=== PATIENT | female | born 1990 | race Asian ===

== ENCOUNTER 2019-07-07 16:27 | Emergency (ER) | payer BC ==
--- NOTE | 2019-07-07 16:52 | UC ---
Cardiac HPI - HPI Summary HPI Summary: 28 yo female presents with left upper chest pain. She tells me that for the last 5 days she has been having left anterior chest wall pain that is worse with movement and palpation. She denies specific injury, but a few weeks ago did injure her left shoulder and has been giving herself "deep tissue" massages to the area - wonders if this is the cause of her pain. States pain is worse at night with laying on her shoulder or turning over in bed. She was seen at an Urgent Care in [place] and a CXR was done and was negative - dx'd with MSK strain. Pt has been taking 200mg ibuprofen at night when she has the pain, but has not noticed any improvement. She denies numbness, tingling, SOB, palpitations, neck pain, headache, dizziness, back pain, or radiation of pain. - History of Current Complaint Stated Complaint: CHEST PAIN ON AND OFF X5 DAYS Time Seen by Provider: 07/07/19 16:51 Hx Obtained From: Patient Onset/Duration: Sudden Onset Initial Severity: Moderate Current Severity: Moderate Pain Intensity: 5 - Allergy/Home Medications Allergies/Adverse Reactions: Allergies Allergy/AdvReac Type Severity Reaction Status Date / Time No Known Allergies Allergy Verified 07/07/19 17:02 Home Medications: Home Medications Ethinyl Estradiol/Drospirenone [Erica 3 mg-0.02 mg Tablet] 1 each PO DAILY 07/07 [History Confirmed 07/07/19] PMH/Surg Hx/FS Hx/Imm Hx - Additional Past Medical History Additional PMH: None Review of Systems All Other Systems Reviewed And Are Negative: No Constitutional: Positive: Negative Skin: Positive: Negative Eyes: Positive: Negative ENT: Positive: Negative Respiratory: Positive: Negative Cardiovascular: Positive: Chest Pain Gastrointestinal: Positive: Negative Genitourinary: Positive: Negative Neurological: Positive: Negative Psychological: Positive: Negative Physical Exam - Summary Physical Exam Summary: GENERAL: NAD. WDWN. No pain distress. SKIN: No rashes, sores, or open wounds. NECK: Supple. Nontender. No lymphadenopathy. CHEST: CTAB. No r/r/w. No accessory muscle use. Breathing comfortably and in no distress. CV: RRR. Pulses intact. Brisk cap refill. MSK: FROM and 5/5 strength throughout. No edema. TTP about anterior LEFT chest wall approx 4th ICS - reproduces her pain. Adduction of left shoulder reproduces pain. NEURO: Alert. PSYCH: Age appropriate behavior. Triage Information Reviewed: Yes Vital Signs: Vital Signs: Temp Pulse Resp BP Pulse Ox 99.6 F 67 16 121/72 100 07/07/19 16:51 07/07/19 16:51 07/07/19 16:51 07/07/19 16:51 07/07/19 16:51 Vital Signs Reviewed: Yes Diagnostics - Radiology CXR Radiology Interpretation Completed By: Radiologist Summary of Radiographic Findings: CXR done at [facility] 07/04 - WNL. No rib fractures seen - EKG EKG Comparison: Other Summary of EKG Findings: 70bpm NSR. No STEMI as read by Dr. Aviles - Assessment/Plan Course Of Treatment: HEART score 0 Well's score 0 Suspect MSK strain. Low suspicion for cardiac etiology at this time, but discussed with the pt that I cannot completely rule this out and recommended she go to the ER for further evaluation. She did not want to do this and is asking for labwork to be drawn here. Will draw for CBC, CMP, TSH and have her try naproxen for her discomfort. Recommended that if her pain does not improve, worsens, or if she develops new symptoms to go to the ER - she voiced understanding and agrees with the plan - Clinical Impression Provider Diagnosis: Chest wall pain Discharge ED - Sign-Out/Discharge Documenting (check all that apply): Patient Departure All imaging exams completed and their final reports reviewed: No Studies - Discharge Plan Condition: Stable Disposition: HOME Prescriptions: Naproxen [Naproxen 500 mg tab] 500 mg PO BID PRN #14 tablet.dr MCDANIELS Reason: Pain - Moderate Patient Education Materials: Muscle Strain (ED), Costochondritis (ED) Referrals: No Primary Care Phys,NOPCP [Primary Care Provider] - Additional Instructions: If you develop worsening chest pain, palpitations, headache, shortness of breath , dizziness, or nausea - please go to the ER immediately - Billing Disposition and Condition Condition: STABLE Disposition: Home
[2019-07-07 17:02] VITALS: BP 121/72
[2019-07-08 12:08] LABS: ABS Eosinophils 0.2 10^3/ul (0-0.6); ABS Lymphocytes 2.8 10^3/ul (1.0-4.8); ABS Monocytes 0.6 10^3/ul (0-0.8); ABS Neutrophils 5.1 10^3/ul (1.5-7.7); Hematocrit 42 % (35-47); Hemoglobin 14.3 g/dL (12.0-16.0); Lymphocyte % 32.2 %; Mean Corpuscular HGB Conc 34 g/dL (31-36); Mean Corpuscular Hemoglobin 31 pg (27-31); Mean Corpuscular Volume 90 fL (80-97); Mean Platelet Volume 8.1 fL (7.4-10.4); Nucleated Red Blood Cells % 0.3; Platelet Count 294 10^3/uL (150-450); Red Cell Distribution Width 13 % (10-15); White Blood Count 8.7 10^3/uL (3.5-10.8)
[2019-07-08 12:22] LABS: Albumin 4.1 g/dL (3.2-5.2); Calcium 9.7 mg/dL (8.6-10.3); Potassium 3.9 mmol/L (3.5-5.0); Total Bilirubin 0.3 mg/dL (0.2-1.0)
[2019-07-08 12:28] LABS: Albumin/Globulin Ratio 1.4 (1-3); BUN/Creatinine Ratio 18.9 (8-20); EGFR African American 114.8 (>60); EGFR Non-African American 94.9 (>60); Total Protein 7.1 g/dL (6.4-8.9)
[2019-07-08 12:53] LABS: TSH (Thyroid Stimulating Horm) 3.46 mcIU/mL (0.34-5.60)
== END 2019-07-07 17:27 | disposition home or self-care (01) ==
LOC: UCCORT 16:27
DX: R07.81 Pleurodynia (principal)
CPT/HCPCS: 36415; 80053; 84443; 85025; 93005; 99202; G0463